=== PATIENT | female | born 1985 | race Caucasian/White ===

== ENCOUNTER 2018-10-10 15:18 | Emergency (ER) | payer OTHER ==
[~2018-10-10] VITALS: Ht 160 cm; Wt 78.5 kg
[2018-10-10] MEDS ORDERED: KETOROLAC TROMETHAMINE 60 MG INJ IM ONE ×2 (15:56→16:00)
--- NOTE | 2018-10-10 15:56 | NUR ---
PT IS A/OX4, BIB FRIEND, C/O R FOOT PAIN. PT REPORTS SHE TRIPPED AND FELL LAST NIGHT AND SUBSEQUENTLY INJURED HER R FOOT. PT DENIES HEAD INJURY/LOC AT TIME OF FALL. NO OBVIOUS DEFORMITY TO THE R FOOT. VSS. PT DENIES C/P, SOB, N/V/D, DIZZINESS, HEADACHE.
--- NOTE | 2018-10-10 18:09 | NUR ---
Patient discharged to home in stable conditon. Written and verbal after care instructions given. Patient verbalizes understanding of instructions. ALL BELONGINGS W/ PT. PT ASSISTED OUT TO PRIVATE VEHICLE IN W/C.
[2018-10-10 18:11] VITALS: BP 116/72
== END 2018-10-10 18:11 | disposition home or self-care (01) ==
LOC: ER 15:21
DX: S92.321A Displaced fracture of second metatarsal bone, right foot, initial encounter for closed fracture (principal); S92.334A Nondisplaced fracture of third metatarsal bone, right foot, initial encounter for closed fracture; W18.39XA Other fall on same level, initial encounter; Y93.89 Activity, other specified; Y92.89 Other specified places as the place of occurrence of the external cause; Y99.8 Other external cause status
CPT/HCPCS: 29515; 73610; 73630; 96372; 99283; J1885; A4663